=== PATIENT | male | born 1970 | race Caucasian/White ===

== ENCOUNTER 2017-01-27 13:27 | Inpatient (IN) | payer OTHER ==
[2017-01-27 18:26] VITALS: BMI 30.4
--- NOTE | 2017-01-27 20:04 | HP ---
COWS - Scale Resting Pulse: 0= SD 80 or Below Sweatin= Chills/Flushing Restless Observation: 3= Extraneous Movement Pupil Size: 0= Normal to Room Light Bone or Joint Aches: 2= Severe Diffuse Aches Runny Nose/ Eye Tearin= Runny Nose/Eyes GI Upset > 30mins: 1= Stomach Cramp Tremor Observation: 2= Slight Tremor Visible Yawning Observation: 0= None Anxiety or Irritability: 2=Irritable/Anxious Goose Flesh Skin: 0=Smooth Skin COWS Score: 13 Admission ROS S - [facility] Chief Complaint: withdrawal sx Allergies/Adverse Reactions: Allergies Allergy/AdvReac Type Severity Reaction Status Date / Time No Known Allergies Allergy Verified 01/27/17 18:18 History of Present Illness: 46 years old male with long history of heroin nicotine dependence has abscess on right arm and right leg treated at [facility] "stay few hours" discharged with antibiotic, denies mental illness is admitted to detox Exam Limitations: No Limitations - Ebola screening Have you traveled outside of the country in the last 21 days: No Have you had contact with anyone from an Ebola affected area: No Have you been sick,other than usual withdrawal symptoms: No Do you have a fever: No - Review of Systems Constitutional: Changes in sleep, Weight Stable EENT: reports: No Symptoms Reported Respiratory: reports: No Symptoms reported Cardiac: reports: No Symptoms Reported GI: reports: Nausea, Poor Fluid Intake, Abdominal cramping : reports: No Symptoms Reported Musculoskeletal: reports: Back Pain, Joint Pain, Muscle Pain, Neck Pain Integumentary: reports: Change in Color (right arm and right leg abscess treated in er discharged with antibiotic) Neuro: reports: Tremors Endocrine: reports: No Symptoms Reported Hematology: reports: No Symptoms Reported Psychiatric: reports: Judgement Intact, Mood/Affect Appropiate, Orientated x3 Other Systems: Reviewed and Negative Patient History - Patient Medical History Hx Anemia: No Hx Asthma: No Hx Chronic Obstructive Pulmonary Disease (COPD): No Hx Cancer: No Hx Cardiac Disorders: No Hx Congestive Heart Failure: No Hx Hypertension: No Hx Hypercholesterolemia: No Hx Pacemaker: No HX Cerebrovascular Accident: No Hx Seizures: No Hx Dementia: No Hx Diabetes: No Hx Gastrointestinal Disorders: No Hx Liver Disease: No Hx Genitourinary Disorders: No Hx Sexually Transmitted Disorders: No Hx Renal Disease (ESRD): No Hx Thyroid Disease: No Hx Human Immunodeficiency Virus (HIV): No Hx Hepatitis C: Yes Hx Depression: No Hx Suicide Attempt: No Hx Bipolar Disorder: No Hx Schizophrenia: No - Patient Surgical History Past Surgical History: No - PPD History Previous Implant?: Yes Documented Results: Positive w/o proof Implanted On Prior [facility] Admission?: No PPD to be Administered?: No - Smoking Cessation Smoking history: Current every day smoker Have you smoked in the past 12 months: Yes Aproximately how many cigarettes per day: 10 Cigars Per Day: 0 Hx Chewing Tobacco Use: No Initiated information on smoking cessation: Yes 'Breaking Loose' booklet given: 01/27/17 - Substance & Tx. History Hx Alcohol Use: No Hx Substance Use: Yes Substance Use Type: Cocaine, Marijuana, Opiates Hx Substance Use Treatment: Yes (2015 [facility]) - Substances Abused Heroin Route: Injection Frequency: Daily Amount used: 2-3 BUNDLES Age of first use: 27 Date of Last Use: 01/26/17 Admission Physical Exam [facility] - Vital Signs Vital Signs: Vital Signs - 24 hr 01/27/17 16:57 Temperature 35.8 F L Pulse Rate 75 Respiratory 20 Rate Blood Pressure 137/84 - Physical General Appearance: Yes: Appropriately Dressed, Mild Distress, Obese, Tremorous , Irritable, Sweating, Anxious HEENTM: Yes: Hearing grossly Normal, Normal ENT Inspection, Normocephalic, Normal Voice Respiratory: Yes: Chest Non-Tender, Lungs Clear, Normal Breath Sounds, No Respiratory Distress, No Accessory Muscle Use Neck: Yes: Supple, Trachea in good position Breast: Yes: Breasts Symetrical Cardiology: Yes: Regular Rhythm, Regular Rate, S1, S2 Abdominal: Yes: Non Tender, Soft, Increased Bowel Sounds Genitourinary: Yes: Within Normal Limits Back: Yes: Normal Inspection Musculoskeletal: Yes: full range of Motion, Gait Steady, Back pain, Muscle Pain Extremities: Yes: Normal Range of Motion, Non-Tender, Tremors, Erythema (right arm + right leg) Neurological: Yes: Fully Oriented, Alert, Motor Strength 5/5, Normal Mood/Affect , Normal Response Integumentary: Yes: Warm, Erythema (right arm and right leg), Track Franks Lymphatic: Yes: Within Normal Limits - Diagnostic (1) Opioid dependence with withdrawal Current Visit: Yes Status: Acute (2) Positive PPD, treated Current Visit: Yes Status: Resolved (3) Hepatitis C carrier Current Visit: Yes Status: Resolved (4) Nicotine dependence Current Visit: Yes Status: Acute Qualifiers: Nicotine product type: cigarettes Substance use status: in withdrawal Qualified Code(s): F17.213 - Nicotine dependence, cigarettes, with withdrawal; F17.213 - Nicotine dependence, cigarettes, with withdrawal (5) Abscess Current Visit: Yes Status: Resolved Comment: right leg and right arm = treated at [facility] 01/23/17 discharged with doxycycline keflex bactrim Cleared for Admission [facility] - Detox or Rehab [facility] Level of Care: Medically Managed Detox Regimen/Protocol: Methadone [facility] Breath Alcohol Content Breath Alcohol Content: 0 Urine Drug Screen - Results Drug Screen Negative: No Urine Drug Screen Results: THC-Marijuana, BARBARA-Cocaine, OPI-Opiates, MET- Methamphetamine, MTD-Methadone
[2017-01-27] MEDS ORDERED: guaiFENesin/D-METHORPHAN HB 10 ML UNIT-DOSE CUPS PO PRN (20:09)
[2017-01-27] MEDS ORDERED: P-EPHED 60MG/TRIPROLIDI 2.5MG TABLET PO PRN (20:09)
[2017-01-27] MEDS ORDERED: MAG HYDROX/AL HYDROX/SIMETH 30 ML UNIT-DOSE CUP PO PRN (20:09)
[2017-01-27] MEDS ORDERED: MAGNESIUM HYDROX 2400MG/30ML ORAL SUSPENSION 30 ML CUP PO PRN (20:09)
[2017-01-27] MEDS ORDERED: MAGNESIUM CITRATE 300 ML BOTTLE PO PRN (20:09)
[2017-01-27] MEDS ORDERED: ACETAMINOPHEN 325 MG TABLET (FP) PO PRN (20:09)
[2017-01-27] MEDS ORDERED: LOPERAMIDE HCL 2 MG CAPSULE PO PRN (20:09)
[2017-01-27] MEDS ORDERED: MENTHOL/PHENOL 1 EACH UD MM PRN (20:09)
[2017-01-27] MEDS ORDERED: METHADONE HCL 10 MG TABLET (FOR DETOX USE ONLY) PO ONE ×2 (20:09→23:00)
[2017-01-27] MEDS ORDERED: NICOTINE POLACRILEX 2 MG GUM BC PRN (20:09)
[2017-01-27] MEDS: diazePAM 5 MG TABLET PO PRN (21:29)
[2017-01-27] MEDS: THIAMINE HCL 100 MG TABLET (FP) PO SCH (21:30)
[2017-01-27] MEDS: RANITIDINE HCL 150 MG TABLET (FP) PO SCH (21:30)
[2017-01-27] MEDS: LIDOCAINE PATCH REMOVAL MC SCH (21:33)
[2017-01-27] MEDS ORDERED: NEOMYCIN/POLYMYXIN/BACITRACIN (TRIPLE ANTIBIOTIC) 28 GM OINTMENT TP SCH (22:00)
[2017-01-27] MEDS ORDERED: DOXYCYCLINE HYCLATE PO SCH (22:00)
[2017-01-27 22:13] LABS: URINE APPEARANCE SLCLOUDY; URINE BILIRUBIN NEGATIVE (NEGATIVE); URINE BLOOD NEGATIVE (NEGATIVE); URINE COLOR YELLOW; URINE GLUCOSE (UA) NEGATIVE (NEGATIVE); URINE KETONE NEGATIVE (NEGATIVE); URINE NITRITE NEGATIVE (NEGATIVE); URINE PROTEIN NEGATIVE (NEGATIVE); URINE UROBILINOGEN NEGATIVE mg/dL (0.2-1.0)
[2017-01-28] MEDS: diazePAM 5 MG TABLET PO PRN ×4 (05:29→19:14)
[2017-01-28 09:28] LABS: MCH 28.1 pg (25.7-33.7); MCHC 32.1 g/dl (32.0-35.9); MEAN CELL VOLUME 87.6 fl (80-96); MEAN PLT VOLUME 8.6 fl (7.5-11.1); PLATELET COUNT 303 K/MM3 (134-434); RDW 15.5 % (11.9-15.9); WHITE BLOOD COUNT 9.5 K/mm3 (4.0-10.0)
[2017-01-28 09:58] LABS: ALBUMIN 3.1 g/dl (3.4-5.0); ALK PHOS 75 U/L (45-117); ANION GAP 9 (8-16); BILIRUBIN,TOTAL 0.5 mg/dL (0.2-1.0); CALCIUM 8.9 mg/dL (8.5-10.1); CO2 27 mmol/L (21-32); GLUCOSE,RANDOM 90 mg/dL (74-106); SGOT/AST 14 U/L (15-37); SGPT/ALT 18 U/L (12-78); TOT PROT 6.8 g/dl (6.4-8.2)
[2017-01-28] MEDS ORDERED: BACITRACIN 15 GM TUBE TOPICAL OINTMENT TP SCH ×2 (10:00)
[2017-01-28] MEDS ORDERED: METHADONE HCL 10 MG TABLET (FOR DETOX USE ONLY) PO ONE (10:00)
[2017-01-28] MEDS: RANITIDINE HCL 150 MG TABLET (FP) PO SCH ×2 (10:13→22:13)
[2017-01-28] MEDS: PRENATAL VITAMINS W/ FOLIC ACID TABLET (FP) PO SCH (10:13)
--- NOTE | 2017-01-28 10:13 | PN ---
S COWS - Scale Resting Pulse: 1= SC 81-100 Sweatin= Chills/Flushing Restless Observation: 3= Extraneous Movement Pupil Size: 0= Normal to Room Light Bone or Joint Aches: 4=Acute Joint/Muscle Pain Runny Nose/ Eye Tearin= Nasal Congestion GI Upset > 30mins: 0= None Tremor Observation of Outstretched Hands: 1= Tremor [place], Not Seen Yawning Observation: 1= 1-2x During Session Anxiety or Irritability: 2=Irritable/Anxious Goose Flesh Skin: 0=Smooth Skin COWS Score: 14 S Progress Note (SOAP) Subjective: ANXIETY,SWEATS/CHILLS,IRRITABILITY,INTERMITTENT SLEEP. PT HAS ABSCESS/ULCER ON RIGHT ANKLE AND CELLULITIS ON RIGHT FOREARM. HE IS ON ANTIBIOTICS THERAPY. ADDENDUM NOTE: PT STATES HE WENT TO [facility] ER ON 01/18/17 FOR ABSCESS ON RIGHT ANKLE AND WAS GIVEN BACTRIM DS 1 TAB PO BID X 10 DAYS AND KEFLEX 500 MG PO BID X 10 DAYS. ON 01/26/17 WENT BACK TO [facility] FOR ABSCESS ON RIGHT FOREARM AND WAS GIVEN DOXYCYCLINE 100 MG PO BID X 8 DAYS. Objective: 01/28/17 10:13 Vital Signs Temperature 97.9 F 01/28/17 09:37 Pulse Rate 81 01/28/17 09:37 Respiratory Rate 20 01/28/17 09:37 Blood Pressure 138/90 01/28/17 09:37 O2 Sat by Pulse Oximetry (%) Laboratory Last Values WBC 9.5 K/mm3 (4.0-10.0) 01/28/17 07:00 RBC 4.80 M/mm3 (4.00-5.60) 01/28/17 07:00 Hgb 13.5 GM/dL (11.7-16.9) 01/28/17 07:00 Hct 42.1 % (35.4-49) 01/28/17 07:00 MCV 87.6 fl (80-96) 01/28/17 07:00 MCH 28.1 pg (25.7-33.7) 01/28/17 07:00 MCHC 32.1 g/dl (32.0-35.9) 01/28/17 07:00 RDW 15.5 % (11.9-15.9) 01/28/17 07:00 Plt Count 303 K/MM3 (134-434) 01/28/17 07:00 MPV 8.6 fl (7.5-11.1) 01/28/17 07:00 Urine Color Yellow 01/27/17 21:30 Urine Appearance Slcloudy 01/27/17 21:30 Urine pH 5.0 (5.0-8.0) 01/27/17 21:30 Urine Protein Negative (NEGATIVE) 01/27/17 21:30 Urine Glucose (UA) Negative (NEGATIVE) 01/27/17 21:30 Urine Ketones Negative (NEGATIVE) 01/27/17 21:30 Urine Blood Negative (NEGATIVE) 01/27/17 21:30 Urine Nitrite Negative (NEGATIVE) 01/27/17 21:30 Urine Bilirubin Negative (NEGATIVE) 01/27/17 21:30 Urine Urobilinogen Negative mg/dL (0.2-1.0) 01/27/17 21:30 RIGHT FOREARM :SLIGHT REDNESS AND SWELLING, RIGHT ANKLE:SMALL ULCER WOUND WITH SLIGHT PUS-LIKE DRAINAGE. Assessment: 01/28/17 10:17 WITHDRAWAL SX ABSCESS/ULCER RIGHT ANKLE CELLULITIS RIGHT FOREAM Plan: WITHDRAWAL SX
[2017-01-28] MEDS: LIDOCAINE 5% TOPICAL PATCH TP SCH (10:14)
[2017-01-28] MEDS: NICOTINE 14 MG/24 HOURS TOPICAL PATCH TD SCH (10:14)
[2017-01-28] MEDS: PATIENT'S OWN MEDICATION (NON-FORMULARY) (Cephalexin [Keflex] 500 MG) PO SCH ×2 (10:14→22:14)
[2017-01-28 11:20] LABS: URINE LEUK ESTERASE Negative (NEGATIVE)
--- NOTE | 2017-01-28 12:02 | EKG ---
Test Reason : Blood Pressure : / mmHG Vent. Rate : 069 BPM Atrial Rate : 069 BPM P-R Int : 162 ms QRS Dur : 096 ms QT Int : 390 ms P-R-T Axes : 072 002 019 degrees QTc Int : 417 ms NORMAL SINUS RHYTHM NORMAL ECG NO PREVIOUS ECGS AVAILABLE Confirmed by DEJON RACHEL MD ([id number]) on 01/28/2017 12:02:01 PM Referred By: Confirmed By:DEJON RACHEL MD
[2017-01-28] MEDS: THIAMINE HCL 100 MG TABLET (FP) PO SCH (22:13)
[2017-01-28] MEDS: diphenhydrAMINE HCL 50 MG CAPSULE PO PRN (22:15)
[2017-01-29] MEDS: diazePAM 5 MG TABLET PO PRN ×5 (02:05→22:19)
[2017-01-29] MEDS: PATIENT'S OWN MEDICATION (NON-FORMULARY) (Cephalexin [Keflex] 500 MG) PO SCH ×5 (07:15→22:19)
[2017-01-29] MEDS ORDERED: CYCLOBENZAPRINE HCL 10 MG TABLET (FP) PO PRN (09:59)
[2017-01-29] MEDS ORDERED: ONDANSETRON *ODT* 4 MG TABLET SL PRN (10:00)
[2017-01-29] MEDS ORDERED: METHADONE HCL 5 MG TABLET (FOR DETOX USE ONLY) PO ONE (10:00)
[2017-01-29] MEDS: PRENATAL VITAMINS W/ FOLIC ACID TABLET (FP) PO SCH (10:19)
[2017-01-29] MEDS: LIDOCAINE 5% TOPICAL PATCH TP SCH (10:20)
[2017-01-29] MEDS: cloNIDine HCL 0.1 MG TABLET PO PRN ×2 (10:20→22:20)
[2017-01-29] MEDS: RANITIDINE HCL 150 MG TABLET (FP) PO SCH ×2 (10:20→22:19)
[2017-01-29] MEDS: NEOMYCIN/POLYMYXIN/BACITRACIN (TRIPLE ANTIBIOTIC) 28 GM OINTMENT TP SCH ×3 (10:21→22:44)
[2017-01-29] MEDS: NICOTINE 14 MG/24 HOURS TOPICAL PATCH TD SCH (10:22)
[2017-01-29] MEDS: LIDOCAINE PATCH REMOVAL MC SCH ×2 (10:22→22:46)
--- NOTE | 2017-01-29 12:27 | PN ---
S COWS - Scale Resting Pulse: 1= MO 81-100 Sweatin= Chills/Flushing Restless Observation: 1= Difficult to Sit Still Pupil Size: 0= Normal to Room Light Bone or Joint Aches: 2= Severe Diffuse Aches Runny Nose/ Eye Tearin= Nasal Congestion GI Upset > 30mins: 2= Nausea/Diarrhea Tremor Observation of Outstretched Hands: 2= Slight Tremor Visible Yawning Observation: 1= 1-2x During Session Anxiety or Irritability: 2=Irritable/Anxious Goose Flesh Skin: 3=Piloerection COWS Score: 16 S Progress Note (SOAP) Subjective: Nausea, Tremors, Fatigue. Objective: PT. A & O X 2 (DISORIENTED ABOUT DAY / DATE). NO ACUTE DISTRESS. 01/29/17 12:25 Vital Signs Temperature 98 F 01/29/17 06:31 Pulse Rate 83 01/29/17 06:31 Respiratory Rate 18 01/29/17 06:31 Blood Pressure 131/81 01/29/17 06:31 O2 Sat by Pulse Oximetry (%) Laboratory Tests 01/27/17 01/28/17 01/28/17 21:30 07:00 07:00 WBC 9.5 RBC 4.80 Hgb 13.5 Hct 42.1 MCV 87.6 MCH 28.1 MCHC 32.1 RDW 15.5 Plt Count 303 MPV 8.6 Sodium 140 Potassium 4.6 Chloride 104 Carbon Dioxide 27 Anion Gap 9 BUN 17 Creatinine 1.0 Creat Clearance w eGFR > 60 Random Glucose 90 Calcium 8.9 Total Bilirubin 0.5 AST 14 L ALT 18 Alkaline Phosphatase 75 Total Protein 6.8 Albumin 3.1 L Urine Color Yellow Urine Appearance Slcloudy Urine pH 5.0 Ur Specific [place] >= 1.030 H Urine Protein Negative Urine Glucose (UA) Negative Urine Ketones Negative Urine Blood Negative Urine Nitrite Negative Urine Bilirubin Negative Urine Urobilinogen Negative Ur Leukocyte Esterase Negative RPR Titer 01/28/17 07:00 WBC RBC Hgb Hct MCV MCH MCHC RDW Plt Count MPV Sodium Potassium Chloride Carbon Dioxide Anion Gap BUN Creatinine Creat Clearance w eGFR Random Glucose Calcium Total Bilirubin AST ALT Alkaline Phosphatase Total Protein Albumin Urine Color Urine Appearance Urine pH Ur Specific [place] Urine Protein Urine Glucose (UA) Urine Ketones Urine Blood Urine Nitrite Urine Bilirubin Urine Urobilinogen Ur Leukocyte Esterase RPR Titer Nonreactive LABS NOTED. Assessment: 01/29/17 12:26 WITHDRAWAL SYMPTOMS. Plan: CONTINUE DETOX.
[2017-01-29] MEDS: BACLOFEN 10 MG TABLET (FP) PO PRN (15:02)
[2017-01-29] MEDS: THIAMINE HCL 100 MG TABLET (FP) PO SCH (22:19)
[2017-01-30] MEDS: diazePAM 5 MG TABLET PO PRN ×3 (03:35→17:15)
[2017-01-30] MEDS: PATIENT'S OWN MEDICATION (NON-FORMULARY) (Cephalexin [Keflex] 500 MG) PO SCH ×2 (05:20→13:42)
[2017-01-30] MEDS ORDERED: METHADONE HCL 5 MG TABLET (FOR DETOX USE ONLY) PO ONE (10:00)
[2017-01-30] MEDS: RANITIDINE HCL 150 MG TABLET (FP) PO SCH ×2 (10:14→22:10)
[2017-01-30] MEDS: PRENATAL VITAMINS W/ FOLIC ACID TABLET (FP) PO SCH (10:14)
[2017-01-30] MEDS: NEOMYCIN/POLYMYXIN/BACITRACIN (TRIPLE ANTIBIOTIC) 28 GM OINTMENT TP SCH ×2 (10:15→22:09)
[2017-01-30] MEDS: LIDOCAINE 5% TOPICAL PATCH TP SCH (10:15)
[2017-01-30] MEDS: cloNIDine HCL 0.1 MG TABLET PO PRN (10:15)
[2017-01-30] MEDS: NICOTINE 14 MG/24 HOURS TOPICAL PATCH TD SCH (10:15)
--- NOTE | 2017-01-30 15:46 | PN ---
BHS Progress Note (SOAP) Subjective: Diarrhea, Anxious, Body Aces, Interrupted Sleep. Objective: PT. A & O X 3. NO ACUTE DISTRESS. 01/30/17 15:45 Vital Signs Temperature 97.8 F 01/30/17 13:28 Pulse Rate 100 H 01/30/17 13:28 Respiratory Rate 20 01/30/17 13:28 Blood Pressure 103/52 01/30/17 13:28 O2 Sat by Pulse Oximetry (%) Laboratory Tests 01/27/17 01/28/17 01/28/17 21:30 07:00 07:00 WBC 9.5 RBC 4.80 Hgb 13.5 Hct 42.1 MCV 87.6 MCH 28.1 MCHC 32.1 RDW 15.5 Plt Count 303 MPV 8.6 Sodium 140 Potassium 4.6 Chloride 104 Carbon Dioxide 27 Anion Gap 9 BUN 17 Creatinine 1.0 Creat Clearance w eGFR > 60 Random Glucose 90 Calcium 8.9 Total Bilirubin 0.5 AST 14 L ALT 18 Alkaline Phosphatase 75 Total Protein 6.8 Albumin 3.1 L Urine Color Yellow Urine Appearance Slcloudy Urine pH 5.0 Ur Specific [place] >= 1.030 H Urine Protein Negative Urine Glucose (UA) Negative Urine Ketones Negative Urine Blood Negative Urine Nitrite Negative Urine Bilirubin Negative Urine Urobilinogen Negative Ur Leukocyte Esterase Negative RPR Titer 01/28/17 07:00 WBC RBC Hgb Hct MCV MCH MCHC RDW Plt Count MPV Sodium Potassium Chloride Carbon Dioxide Anion Gap BUN Creatinine Creat Clearance w eGFR Random Glucose Calcium Total Bilirubin AST ALT Alkaline Phosphatase Total Protein Albumin Urine Color Urine Appearance Urine pH Ur Specific [place] Urine Protein Urine Glucose (UA) Urine Ketones Urine Blood Urine Nitrite Urine Bilirubin Urine Urobilinogen Ur Leukocyte Esterase RPR Titer Nonreactive LABS NOTED. Assessment: 01/30/17 15:45 WITHDRAWAL SYMPTOMS. Plan: CONTINUE DETOX.
[2017-01-30] MEDS: diphenhydrAMINE HCL 50 MG CAPSULE PO PRN (22:10)
[2017-01-30] MEDS: BACLOFEN 10 MG TABLET (FP) PO PRN (22:10)
[2017-01-30] MEDS: THIAMINE HCL 100 MG TABLET (FP) PO SCH (22:10)
[2017-01-30] MEDS: LIDOCAINE PATCH REMOVAL MC SCH (22:10)
[2017-01-31] MEDS: hydrOXYzine PAMOATE 50 MG CAPSULE (FP) PO PRN ×3 (02:16→22:06)
[2017-01-31] MEDS ORDERED: METHADONE HCL 10 MG TABLET (FOR DETOX USE ONLY) PO ONE (10:00)
[2017-01-31] MEDS: NEOMYCIN/POLYMYXIN/BACITRACIN (TRIPLE ANTIBIOTIC) 28 GM OINTMENT TP SCH ×2 (10:11→22:06)
[2017-01-31] MEDS: PRENATAL VITAMINS W/ FOLIC ACID TABLET (FP) PO SCH (10:11)
[2017-01-31] MEDS: RANITIDINE HCL 150 MG TABLET (FP) PO SCH ×2 (10:11→22:06)
[2017-01-31] MEDS: NICOTINE 14 MG/24 HOURS TOPICAL PATCH TD SCH (10:12)
[2017-01-31] MEDS: cloNIDine HCL 0.1 MG TABLET PO PRN (10:12)
[2017-01-31] MEDS: LIDOCAINE 5% TOPICAL PATCH TP SCH (10:54)
--- NOTE | 2017-01-31 12:12 | PN ---
B[facility] Progress Note (SOAP) Subjective: OOB AMBULATING ON UNIT. STATES FEELING MUCH BETTER TODAY. Objective: 01/31/17 12:11 Vital Signs Temperature 96.3 F L 01/31/17 09:55 Pulse Rate 89 01/31/17 09:55 Respiratory Rate 20 10 09:55 Blood Pressure 123/72 01/31/17 09:55 O2 Sat by Pulse Oximetry (%) Laboratory Last Values WBC 9.5 K/mm3 (4.0-10.0) 01/28/17 07:00 RBC 4.80 M/mm3 (4.00-5.60) 01/28/17 07:00 Hgb 13.5 GM/dL (11.7-16.9) 01/28/17 07:00 Hct 42.1 % (35.4-49) 01/28/17 07:00 MCV 87.6 fl (80-96) 01/28/17 07:00 MCH 28.1 pg (25.7-33.7) 01/28/17 07:00 MCHC 32.1 g/dl (32.0-35.9) 01/28/17 07:00 RDW 15.5 % (11.9-15.9) 01/28/17 07:00 Plt Count 303 K/MM3 (134-434) 01/28/17 07:00 MPV 8.6 fl (7.5-11.1) 01/28/17 07:00 Sodium 140 mmol/L (136-145) 01/28/17 07:00 Potassium 4.6 mmol/L (3.5-5.1) 01/28/17 07:00 Chloride 104 mmol/L (98-107) 01/28/17 07:00 Carbon Dioxide 27 mmol/L (21-32) 01/28/17 07:00 Anion Gap 9 (8-16) 01/28/17 07:00 BUN 17 mg/dL (7-18) 01/28/17 07:00 Creatinine 1.0 mg/dL (0.7-1.3) 01/28/17 07:00 Creat Clearance w eGFR > 60 (>60) 01/28/17 07:00 Random Glucose 90 mg/dL (74-106) 01/28/17 07:00 Calcium 8.9 mg/dL (8.5-10.1) 01/28/17 07:00 Total Bilirubin 0.5 mg/dL (0.2-1.0) 01/28/17 07:00 AST 14 U/L (15-37) L 01/28/17 07:00 ALT 18 U/L (12-78) 01/28/17 07:00 Alkaline Phosphatase 75 U/L (45-117) 01/28/17 07:00 Total Protein 6.8 g/dl (6.4-8.2) 01/28/17 07:00 Albumin 3.1 g/dl (3.4-5.0) L 01/28/17 07:00 Urine Color Yellow 01/27/17 21:30 Urine Appearance Slcloudy 01/27/17 21:30 Urine pH 5.0 (5.0-8.0) 01/27/17 21:30 Ur Specific [place] >= 1.030 (1.005-1.025) H 01/27/17 21:30 Urine Protein Negative (NEGATIVE) 01/27/17 21:30 Urine Glucose (UA) Negative (NEGATIVE) 01/27/17 21:30 Urine Ketones Negative (NEGATIVE) 01/27/17 21:30 Urine Blood Negative (NEGATIVE) 01/27/17 21:30 Urine Nitrite Negative (NEGATIVE) 01/27/17 21:30 Urine Bilirubin Negative (NEGATIVE) 01/27/17 21:30 Urine Urobilinogen Negative mg/dL (0.2-1.0) 01/27/17 21:30 Ur Leukocyte Esterase Negative (NEGATIVE) 01/27/17 21:30 RPR Titer Nonreactive (NONREACTIVE) 01/28/17 07:00 Assessment: 01/31/17 12:11 WITHDRAWAL SX Plan: CONTINUE DETOX
[2017-01-31] MEDS: BACLOFEN 10 MG TABLET (FP) PO PRN (22:06)
[2017-01-31] MEDS: LIDOCAINE PATCH REMOVAL MC SCH (22:06)
[2017-01-31] MEDS: THIAMINE HCL 100 MG TABLET (FP) PO SCH (22:06)
[2017-02-01] MEDS ORDERED: METHADONE HCL 5 MG TABLET (FOR DETOX USE ONLY) PO ONE (06:00)
[2017-02-01] MEDS: NEOMYCIN/POLYMYXIN/BACITRACIN (TRIPLE ANTIBIOTIC) 28 GM OINTMENT TP SCH (09:44)
[2017-02-01] MEDS: RANITIDINE HCL 150 MG TABLET (FP) PO SCH (09:44)
[2017-02-01] MEDS: PRENATAL VITAMINS W/ FOLIC ACID TABLET (FP) PO SCH (09:44)
[2017-02-01] MEDS: NICOTINE 14 MG/24 HOURS TOPICAL PATCH TD SCH (09:44)
[2017-02-01] MEDS: LIDOCAINE 5% TOPICAL PATCH TP SCH (09:44)
[2017-02-01 09:45] VITALS: BP 138/74; PULSE 117; TEMP 97.9
--- NOTE | 2017-02-01 13:29 | DS ---
[facility] Detox Discharge Summary Admission Date: 01/27/17 Discharge Date: 02/01/17 - History Present History: Opioid Dependence Additional Comments: PATIENT GOING TO REFLECTIONS OUTPATIENT DAY PROGRAM AT [facility] ( [facility] FOR AFTERCARE. PRESCRIPTIONS FOR BOTH BACTRIM DS AND KEFLEX SENT TO PATIENT'S PHARMACY AT TIME OF DISCHARGE FOR CONTINUATION OF TREATMENT OF ABSCESS OF BOTH RIGHT FOREARM AND RIGHT ANKLE THAT PATIENT STARTED TAKING PRIOR TO (AND CONTINUED DURING) ADMISSION TO DETOX. SWELLING SUBSIDING AND INITIAL WOUNDS OBSERVED TO BE HEALING AT BOTH AFFECTED SITES. PATIENT ADVISED TO FOLLOW-UP FOR MEDICAL ASSESSMENT AND FOR FOLLOW-UP CARE OF ABSCESSES ON RIGHT ARM AND RIGHT ANKLE WITH RN CARDIOVASCULAR ICU THOMAS SEQUEIRA ([facility]). PATIENT WAS DISCHARGED FROM DETOX UNIT IN STABLE MEDICAL CONDITION. Pertinent Past History: Hep C, Nicotine Dependence, Abscess of Right Arm and Right Leg, History of Positive PPD (Treated). - Physical Exam Results Vital Signs: Vital Signs Temperature 97.9 F 02/01/17 09:45 Pulse Rate 117 H 02/01/17 09:45 Respiratory Rate 18 02/01/17 09:45 Blood Pressure 138/74 02/01/17 09:45 O2 Sat by Pulse Oximetry (%) Pertinent Admission Physical Exam Findings: WITHDRAWAL SYMPTOMS. Laboratory Tests 01/27/17 01/28/17 01/28/17 21:30 07:00 07:00 WBC 9.5 RBC 4.80 Hgb 13.5 Hct 42.1 MCV 87.6 MCH 28.1 MCHC 32.1 RDW 15.5 Plt Count 303 MPV 8.6 Sodium 140 Potassium 4.6 Chloride 104 Carbon Dioxide 27 Anion Gap 9 BUN 17 Creatinine 1.0 Creat Clearance w eGFR > 60 Random Glucose 90 Calcium 8.9 Total Bilirubin 0.5 AST 14 L ALT 18 Alkaline Phosphatase 75 Total Protein 6.8 Albumin 3.1 L Urine Color Yellow Urine Appearance Slcloudy Urine pH 5.0 Ur Specific [place] >= 1.030 H Urine Protein Negative Urine Glucose (UA) Negative Urine Ketones Negative Urine Blood Negative Urine Nitrite Negative Urine Bilirubin Negative Urine Urobilinogen Negative Ur Leukocyte Esterase Negative RPR Titer 01/28/17 07:00 WBC RBC Hgb Hct MCV MCH MCHC RDW Plt Count MPV Sodium Potassium Chloride Carbon Dioxide Anion Gap BUN Creatinine Creat Clearance w eGFR Random Glucose Calcium Total Bilirubin AST ALT Alkaline Phosphatase Total Protein Albumin Urine Color Urine Appearance Urine pH Ur Specific [place] Urine Protein Urine Glucose (UA) Urine Ketones Urine Blood Urine Nitrite Urine Bilirubin Urine Urobilinogen Ur Leukocyte Esterase RPR Titer Nonreactive LABS NOTED. - Treatment Hospital Course: Detox Protocol Followed, Detoxed Safely, Responded well, Discharged Condition Good Patient has Accepted a Rehab Referral to: NO. PT GOING TO REFLECTIONS OUTPATIENT PROGRAM ([facility], [facility] - Medication Discharge Medications: Ambulatory Orders Cephalexin [Keflex] 500 mg PO TID #21 mg 02/01/17 Sulfamethoxazole/Trimethoprim [Bactrim Ds -] 1 tab PO BID #14 mg 02/01/17 - Diagnosis (1) Abscess Status: Acute (2) Nicotine dependence Status: Chronic Qualifiers: Nicotine product type: cigarettes Substance use status: in withdrawal Qualified Code(s): F17.213 - Nicotine dependence, cigarettes, with withdrawal; F17.213 - Nicotine dependence, cigarettes, with withdrawal (3) Opioid dependence with withdrawal Status: Acute (4) Positive PPD, treated Status: Chronic (5) Hepatitis C carrier Status: Chronic - AMA Did Patient Leave Against Medical Advice: No
== END 2017-02-01 09:46 | disposition home or self-care (01) | DRG 773 ==
LOC: YASAS 13:27 → Y3N 19:07
PROVIDERS: ADMIT Internal Medicine; ATTEND Internal Medicine
PROC: HZ2ZZZZ Detoxification Services for Substance Abuse Treatment (ICD-10-PCS; principal; 2017-01-27)
DX: F11.23 Opioid dependence with withdrawal (principal); F17.213 Nicotine dependence, cigarettes, with withdrawal; R76.11 Nonspecific reaction to tuberculin skin test without active tuberculosis; B18.2 Chronic viral hepatitis C; L02.415 Cutaneous abscess of right lower limb; L03.113 Cellulitis of right upper limb; E66.9 Obesity, unspecified; Z68.30 Body mass index [BMI] 30.0-30.9, adult
CPT/HCPCS: 36415; 71020-TC; 80053; 81003; 85027; 86593; 93005; 93010; J0475

== ENCOUNTER 2020-06-08 12:10 | Inpatient (IN) | payer OTHER ==
[2020-06-08 14:34] VITALS: BMI 27.1
[2020-06-08] MEDS ORDERED: MAGNESIUM HYDROX 2400MG/30ML ORAL SUSPENSION 30 ML CUP PO PRN (14:50)
[2020-06-08] MEDS ORDERED: IBUPROFEN 400 MG TABLET (FP) PO PRN (14:50)
[2020-06-08] MEDS ORDERED: chlordiazePOXIDE HCL 25 MG CAPSULE PO PRN (14:50)
[2020-06-08] MEDS ORDERED: ONDANSETRON *ODT* 4 MG TABLET SL PRN (14:50)
[2020-06-08] MEDS ORDERED: NICOTINE POLACRILEX 2 MG GUM BUC PRN (14:50)
[2020-06-08] MEDS ORDERED: ACETAMINOPHEN 325 MG TABLET (FP) PO PRN ×2 (14:50)
[2020-06-08] MEDS ORDERED: MAG HYDROX/AL HYDROX/SIMETH 30 ML UNIT-DOSE CUP PO PRN (14:50)
[2020-06-08] MEDS ORDERED: METHOCARBAMOL 500 MG TABLET PO PRN (14:50)
[2020-06-08] MEDS ORDERED: MENTHOL/PHENOL 1 EACH UD MM PRN (14:50)
[2020-06-08] MEDS ORDERED: MAGNESIUM CITRATE 300 ML BOTTLE PO PRN (14:50)
[2020-06-08] MEDS ORDERED: BISMUTH SUBSALICYLATE 524 MG/30 ML UD PO PRN (14:50)
[2020-06-08] MEDS ORDERED: METHADONE HCL 10 MG TABLET PO ONE (15:00)
[2020-06-08] MEDS: hydrOXYzine PAMOATE 25 MG CAPSULE (FP) PO SCH ×2 (18:24→23:06)
[2020-06-08] MEDS: chlordiazePOXIDE HCL 25 MG CAPSULE PO SCH ×2 (18:25→23:06)
[2020-06-08] MEDS: MELATONIN 5 MG TABLETS PO SCH (23:05)
[2020-06-08] MEDS: THIAMINE HCL 100 MG TABLET (FP) PO SCH (23:06)
[2020-06-08] MEDS: CEPHALEXIN MONOHYDRATE 500 MG CAPSULE (UD) PO SCH (23:06)
[2020-06-09] MEDS: chlordiazePOXIDE HCL 25 MG CAPSULE PO SCH ×4 (05:18→22:46)
[2020-06-09] MEDS: CEPHALEXIN MONOHYDRATE 500 MG CAPSULE (UD) PO SCH ×2 (05:19→14:28)
[2020-06-09] MEDS: hydrOXYzine PAMOATE 25 MG CAPSULE (FP) PO SCH ×5 (07:28→22:45)
[2020-06-09 09:54] LABS: POTASSIUM 4.4 mmol/L (3.5-5.1)
[2020-06-09 10:02] LABS: ALBUMIN 3.3 g/dl (3.4-5.0); CALCIUM 8.7 mg/dL (8.5-10.1)
[2020-06-09 10:04] LABS: HEMATOCRIT 44.4 % (35.4-49); MCH 29.1 pg (25.7-33.7); MCHC 33.8 g/dl (32.0-35.9); MEAN CELL VOLUME 86.2 fl (80-96); MEAN PLT VOLUME 8.6 fl (7.5-11.1); PLATELET COUNT 251 K/MM3 (134-434); RBC 5.15 M/mm3 (4.00-5.60); RDW 16.3 % (11.9-15.9); WHITE BLOOD COUNT 7.9 K/mm3 (4.0-10.0)
[2020-06-09 10:05] LABS: CREATININE 0.9 mg/dL (0.55-1.3)
[2020-06-09 10:06] LABS: BILIRUBIN,TOTAL 0.9 mg/dL (0.2-1)
[2020-06-09] MEDS: NICOTINE 7 MG/24 HOURS TOPICAL PATCH TD SCH (10:29)
[2020-06-09] MEDS: PRENATAL VITAMINS W/ FOLIC ACID TABLET (FP) PO SCH (10:29)
[2020-06-09] MEDS ORDERED: METHADONE HCL 10 MG TABLET PO ONE (14:08)
[2020-06-09] MEDS: THIAMINE HCL 100 MG TABLET (FP) PO SCH (22:45)
[2020-06-09] MEDS: MELATONIN 5 MG TABLETS PO SCH (22:45)
[2020-06-10] MEDS: chlordiazePOXIDE HCL 25 MG CAPSULE PO SCH ×4 (05:54→22:36)
[2020-06-10] MEDS: hydrOXYzine PAMOATE 25 MG CAPSULE (FP) PO SCH ×5 (05:54→22:37)
[2020-06-10] MEDS: NICOTINE 7 MG/24 HOURS TOPICAL PATCH TD SCH (10:44)
[2020-06-10] MEDS: METHADONE HCL 40 MG DISPERSABLE TABLET PO SCH (10:44)
[2020-06-10] MEDS: PRENATAL VITAMINS W/ FOLIC ACID TABLET (FP) PO SCH (10:44)
[2020-06-10] MEDS: THIAMINE HCL 100 MG TABLET (FP) PO SCH (22:36)
[2020-06-10] MEDS: MELATONIN 5 MG TABLETS PO SCH (22:37)
[2020-06-11] MEDS ORDERED: chlordiazePOXIDE HCL 10 MG CAPSULE PO PRN
[2020-06-11] MEDS: chlordiazePOXIDE HCL 10 MG CAPSULE PO SCH ×4 (06:02→22:21)
[2020-06-11] MEDS: hydrOXYzine PAMOATE 25 MG CAPSULE (FP) PO SCH ×5 (06:02→22:20)
[2020-06-11] MEDS: METHADONE HCL 40 MG DISPERSABLE TABLET PO SCH (06:02)
[2020-06-11] MEDS: PRENATAL VITAMINS W/ FOLIC ACID TABLET (FP) PO SCH (10:50)
[2020-06-11] MEDS: NICOTINE 7 MG/24 HOURS TOPICAL PATCH TD SCH (10:51)
[2020-06-11] MEDS: MELATONIN 5 MG TABLETS PO SCH (22:20)
[2020-06-11] MEDS: THIAMINE HCL 100 MG TABLET (FP) PO SCH (22:21)
[2020-06-12] MEDS: METHADONE HCL 40 MG DISPERSABLE TABLET PO SCH (05:34)
[2020-06-12] MEDS: hydrOXYzine PAMOATE 25 MG CAPSULE (FP) PO SCH ×5 (05:34→22:10)
[2020-06-12] MEDS: chlordiazePOXIDE HCL 10 MG CAPSULE PO SCH ×2 (05:34→18:14)
[2020-06-12] MEDS: PRENATAL VITAMINS W/ FOLIC ACID TABLET (FP) PO SCH (10:27)
[2020-06-12] MEDS: NICOTINE 7 MG/24 HOURS TOPICAL PATCH TD SCH (10:28)
[2020-06-12] MEDS: MELATONIN 5 MG TABLETS PO SCH (22:10)
[2020-06-12] MEDS: THIAMINE HCL 100 MG TABLET (FP) PO SCH (22:10)
[2020-06-13] MEDS ORDERED: chlordiazePOXIDE HCL 10 MG CAPSULE PO ONE (05:00)
[2020-06-13] MEDS: METHADONE HCL 40 MG DISPERSABLE TABLET PO SCH (06:12)
[2020-06-13] MEDS: hydrOXYzine PAMOATE 25 MG CAPSULE (FP) PO SCH (06:13)
[2020-06-13 09:44] VITALS: BP 124/63; PULSE 79; TEMP 97.1
== END 2020-06-13 10:53 | disposition other institution (70) | DRG 773 ==
LOC: YASAS 12:10 → Y6N 14:40
PROVIDERS: ADMIT Allergy & Immunology; ATTEND Allergy & Immunology
PROC: HZ2ZZZZ Detoxification Services for Substance Abuse Treatment (ICD-10-PCS; principal; 2020-06-08)
DX: F10.230 Alcohol dependence with withdrawal, uncomplicated (principal); F11.20 Opioid dependence, uncomplicated; F14.20 Cocaine dependence, uncomplicated; F17.210 Nicotine dependence, cigarettes, uncomplicated; F41.9 Anxiety disorder, unspecified; F31.9 Bipolar disorder, unspecified; L03.113 Cellulitis of right upper limb; M54.5 Low back pain; G89.29 Other chronic pain; B18.2 Chronic viral hepatitis C; R76.11 Nonspecific reaction to tuberculin skin test without active tuberculosis; Z90.49 Acquired absence of other specified parts of digestive tract; Z98.890 Other specified postprocedural states
CPT/HCPCS: 36415; 71046-TC-FY; 80053; 85027; 86780; C9803; U0003

== ENCOUNTER 2020-06-13 11:17 | Inpatient (IN) | payer OTHER ==
[2020-06-13] MEDS ORDERED: MAGNESIUM HYDROX 2400MG/30ML ORAL SUSPENSION 30 ML CUP PO PRN (12:21)
[2020-06-13] MEDS ORDERED: LOPERAMIDE HCL 2 MG CAPSULE PO PRN (12:21)
[2020-06-13] MEDS ORDERED: P-EPHED 60MG/TRIPROLIDI 2.5MG TABLET PO PRN (12:21)
[2020-06-13] MEDS ORDERED: MAG HYDROX/AL HYDROX/SIMETH 30 ML UNIT-DOSE CUP PO PRN (12:21)
[2020-06-13] MEDS ORDERED: MENTHOL/PHENOL 1 EACH UD MM PRN (12:21)
[2020-06-13] MEDS ORDERED: NICOTINE POLACRILEX 2 MG GUM BUC PRN (12:21)
[2020-06-13] MEDS ORDERED: ACETAMINOPHEN 325 MG TABLET (FP) PO PRN (12:21)
[2020-06-13] MEDS ORDERED: MAGNESIUM CITRATE 300 ML BOTTLE PO PRN (12:21)
[2020-06-13] MEDS ORDERED: guaiFENesin 200 MG/10 ML 10 ML UNIT-DOSE CUPS PO PRN (12:21)
[2020-06-13] MEDS: MELATONIN 5 MG TABLETS PO SCH (21:08)
[2020-06-13] MEDS: THIAMINE HCL 100 MG TABLET (FP) PO SCH (21:09)
[2020-06-13] MEDS: hydrOXYzine PAMOATE 25 MG CAPSULE (FP) PO PRN (21:09)
[2020-06-14] MEDS: METHADONE HCL 40 MG DISPERSABLE TABLET PO SCH (06:11)
[2020-06-14] MEDS: NICOTINE 7 MG/24 HOURS TOPICAL PATCH TD SCH (09:28)
[2020-06-14] MEDS: BACITRACIN 0.9 GM PACKET TP SCH (09:28)
[2020-06-14] MEDS: hydrOXYzine PAMOATE 25 MG CAPSULE (FP) PO PRN ×2 (09:28→21:55)
[2020-06-14] MEDS: IBUPROFEN 400 MG TABLET (FP) PO PRN (09:28)
[2020-06-14] MEDS: PRENATAL VITAMINS W/ FOLIC ACID TABLET (FP) PO SCH (09:29)
[2020-06-14] MEDS: METHOCARBAMOL 500 MG TABLET PO PRN (10:54)
[2020-06-14] MEDS: THIAMINE HCL 100 MG TABLET (FP) PO SCH (21:55)
[2020-06-14] MEDS: MELATONIN 5 MG TABLETS PO SCH (21:55)
[2020-06-15] MEDS: METHADONE HCL 40 MG DISPERSABLE TABLET PO SCH (06:31)
[2020-06-15] MEDS: PRENATAL VITAMINS W/ FOLIC ACID TABLET (FP) PO SCH (09:53)
[2020-06-15] MEDS: NICOTINE 7 MG/24 HOURS TOPICAL PATCH TD SCH (09:53)
[2020-06-15] MEDS: BACITRACIN 0.9 GM PACKET TP SCH (09:54)
[2020-06-15] MEDS: METHOCARBAMOL 500 MG TABLET PO PRN ×2 (09:55→21:47)
[2020-06-15] MEDS: THIAMINE HCL 100 MG TABLET (FP) PO SCH (21:45)
[2020-06-15] MEDS: MELATONIN 5 MG TABLETS PO SCH (21:46)
[2020-06-16] MEDS: METHADONE HCL 40 MG DISPERSABLE TABLET PO SCH (06:32)
[2020-06-16] MEDS: METHOCARBAMOL 500 MG TABLET PO PRN (06:34)
[2020-06-16] MEDS ORDERED: BACITRACIN 0.9 GM PACKET ONE (08:51)
[2020-06-16] MEDS ORDERED: MASKS NR ONE (08:52)
[2020-06-16] MEDS: BACITRACIN 0.9 GM PACKET TP SCH (11:13)
[2020-06-16] MEDS: PRENATAL VITAMINS W/ FOLIC ACID TABLET (FP) PO SCH (11:13)
[2020-06-16] MEDS: NICOTINE 7 MG/24 HOURS TOPICAL PATCH TD SCH (11:13)
[2020-06-16] MEDS: THIAMINE HCL 100 MG TABLET (FP) PO SCH (21:14)
[2020-06-16] MEDS: MELATONIN 5 MG TABLETS PO SCH (21:14)
[2020-06-17] MEDS: METHADONE HCL 40 MG DISPERSABLE TABLET PO SCH (06:11)
[2020-06-17] MEDS: METHOCARBAMOL 500 MG TABLET PO PRN ×2 (06:13→21:05)
[2020-06-17] MEDS ORDERED: PT OWN MED DRAWER 7, Y5N ONE ×2 (06:32→09:58)
[2020-06-17] MEDS: BACITRACIN 0.9 GM PACKET TP SCH (09:23)
[2020-06-17] MEDS: PRENATAL VITAMINS W/ FOLIC ACID TABLET (FP) PO SCH (09:24)
[2020-06-17] MEDS: NICOTINE 7 MG/24 HOURS TOPICAL PATCH TD SCH (09:24)
[2020-06-17] MEDS: THIAMINE HCL 100 MG TABLET (FP) PO SCH (21:05)
[2020-06-17] MEDS: MELATONIN 5 MG TABLETS PO SCH (21:05)
[2020-06-17] MEDS: hydrOXYzine PAMOATE 25 MG CAPSULE (FP) PO PRN (21:05)
[2020-06-17] MEDS: IBUPROFEN 400 MG TABLET (FP) PO PRN (21:07)
[2020-06-18] MEDS: METHADONE HCL 40 MG DISPERSABLE TABLET PO SCH (06:20)
[2020-06-18] MEDS: METHOCARBAMOL 500 MG TABLET PO PRN ×2 (06:22→21:10)
[2020-06-18] MEDS: PRENATAL VITAMINS W/ FOLIC ACID TABLET (FP) PO SCH (09:35)
[2020-06-18] MEDS: BACITRACIN 0.9 GM PACKET TP SCH (09:35)
[2020-06-18] MEDS: NICOTINE 7 MG/24 HOURS TOPICAL PATCH TD SCH (09:36)
[2020-06-18] MEDS: IBUPROFEN 400 MG TABLET (FP) PO PRN ×2 (09:37→21:11)
[2020-06-18] MEDS ORDERED: PANTOPRAZOLE 40 MG TABLET PO ONE (15:51)
[2020-06-18] MEDS: MELATONIN 5 MG TABLETS PO SCH (21:10)
[2020-06-18] MEDS: hydrOXYzine PAMOATE 25 MG CAPSULE (FP) PO PRN (21:10)
[2020-06-18] MEDS: THIAMINE HCL 100 MG TABLET (FP) PO SCH (21:10)
[2020-06-19] MEDS: METHADONE HCL 40 MG DISPERSABLE TABLET PO SCH (06:23)
[2020-06-19] MEDS: METHOCARBAMOL 500 MG TABLET PO PRN ×2 (06:23→21:09)
[2020-06-19] MEDS: NICOTINE 7 MG/24 HOURS TOPICAL PATCH TD SCH (09:30)
[2020-06-19] MEDS: IBUPROFEN 400 MG TABLET (FP) PO PRN (09:30)
[2020-06-19] MEDS: BACITRACIN 0.9 GM PACKET TP SCH (09:30)
[2020-06-19] MEDS: PRENATAL VITAMINS W/ FOLIC ACID TABLET (FP) PO SCH (09:30)
[2020-06-19] MEDS: PANTOPRAZOLE 40 MG TABLET PO SCH (09:30)
[2020-06-19] MEDS: MELATONIN 5 MG TABLETS PO SCH (21:09)
[2020-06-19] MEDS: THIAMINE HCL 100 MG TABLET (FP) PO SCH (21:09)
[2020-06-19] MEDS: hydrOXYzine PAMOATE 25 MG CAPSULE (FP) PO PRN (21:09)
[2020-06-20] MEDS: METHADONE HCL 40 MG DISPERSABLE TABLET PO SCH (06:33)
[2020-06-20] MEDS: METHOCARBAMOL 500 MG TABLET PO PRN ×3 (06:33→21:15)
[2020-06-20] MEDS ORDERED: MASKS NR ONE (06:35)
[2020-06-20] MEDS: PANTOPRAZOLE 40 MG TABLET PO SCH (09:42)
[2020-06-20] MEDS: BACITRACIN 0.9 GM PACKET TP SCH (09:42)
[2020-06-20] MEDS: NICOTINE 7 MG/24 HOURS TOPICAL PATCH TD SCH (09:42)
[2020-06-20] MEDS: PRENATAL VITAMINS W/ FOLIC ACID TABLET (FP) PO SCH (09:42)
[2020-06-20] MEDS: TETRAHYDROZOLINE HCL EYE DROPS OD PRN (14:13)
[2020-06-20] MEDS: THIAMINE HCL 100 MG TABLET (FP) PO SCH (21:15)
[2020-06-20] MEDS: MELATONIN 5 MG TABLETS PO SCH (21:15)
[2020-06-20] MEDS: hydrOXYzine PAMOATE 25 MG CAPSULE (FP) PO PRN (21:15)
[2020-06-21] MEDS: METHADONE HCL 40 MG DISPERSABLE TABLET PO SCH (06:14)
[2020-06-21] MEDS: METHOCARBAMOL 500 MG TABLET PO PRN ×2 (06:14→21:07)
[2020-06-21] MEDS: TETRAHYDROZOLINE HCL EYE DROPS OD PRN (06:15)
[2020-06-21] MEDS: PRENATAL VITAMINS W/ FOLIC ACID TABLET (FP) PO SCH (09:34)
[2020-06-21] MEDS: BACITRACIN 0.9 GM PACKET TP SCH (09:34)
[2020-06-21] MEDS: NICOTINE 7 MG/24 HOURS TOPICAL PATCH TD SCH (09:34)
[2020-06-21] MEDS: PANTOPRAZOLE 40 MG TABLET PO SCH (09:35)
[2020-06-21] MEDS: IBUPROFEN 400 MG TABLET (FP) PO PRN (09:36)
[2020-06-21] MEDS: MELATONIN 5 MG TABLETS PO SCH (21:06)
[2020-06-21] MEDS: THIAMINE HCL 100 MG TABLET (FP) PO SCH (21:06)
[2020-06-21] MEDS: hydrOXYzine PAMOATE 25 MG CAPSULE (FP) PO PRN (21:07)
[2020-06-22] MEDS: METHADONE HCL 40 MG DISPERSABLE TABLET PO SCH (05:48)
[2020-06-22] MEDS: IBUPROFEN 400 MG TABLET (FP) PO PRN (05:50)
[2020-06-22] MEDS: TETRAHYDROZOLINE HCL EYE DROPS OD PRN (05:50)
[2020-06-22] MEDS: PANTOPRAZOLE 40 MG TABLET PO SCH (09:45)
[2020-06-22] MEDS: BACITRACIN 0.9 GM PACKET TP SCH (09:45)
[2020-06-22] MEDS: PRENATAL VITAMINS W/ FOLIC ACID TABLET (FP) PO SCH (09:45)
[2020-06-22] MEDS: NICOTINE 7 MG/24 HOURS TOPICAL PATCH TD SCH (09:45)
[2020-06-22] MEDS: hydrOXYzine PAMOATE 25 MG CAPSULE (FP) PO PRN (21:12)
[2020-06-22] MEDS: THIAMINE HCL 100 MG TABLET (FP) PO SCH (21:12)
[2020-06-22] MEDS: MELATONIN 5 MG TABLETS PO SCH (21:12)
[2020-06-22] MEDS: METHOCARBAMOL 500 MG TABLET PO PRN (21:12)
[2020-06-23] MEDS: METHADONE HCL 40 MG DISPERSABLE TABLET PO SCH (06:21)
[2020-06-23] MEDS: METHOCARBAMOL 500 MG TABLET PO PRN ×2 (06:24→21:23)
[2020-06-23] MEDS: TETRAHYDROZOLINE HCL EYE DROPS OD PRN (06:24)
[2020-06-23] MEDS: NICOTINE 7 MG/24 HOURS TOPICAL PATCH TD SCH (09:51)
[2020-06-23] MEDS: hydrOXYzine PAMOATE 25 MG CAPSULE (FP) PO PRN ×2 (09:51→21:23)
[2020-06-23] MEDS: BACITRACIN 0.9 GM PACKET TP SCH (09:51)
[2020-06-23] MEDS: PANTOPRAZOLE 40 MG TABLET PO SCH (09:52)
[2020-06-23] MEDS: PRENATAL VITAMINS W/ FOLIC ACID TABLET (FP) PO SCH (09:52)
[2020-06-23] MEDS: IBUPROFEN 400 MG TABLET (FP) PO PRN (09:52)
[2020-06-23] MEDS: THIAMINE HCL 100 MG TABLET (FP) PO SCH (21:23)
[2020-06-23] MEDS: MELATONIN 5 MG TABLETS PO SCH (21:23)
[2020-06-24] MEDS: METHADONE HCL 40 MG DISPERSABLE TABLET PO SCH (06:30)
[2020-06-24] MEDS: METHOCARBAMOL 500 MG TABLET PO PRN (06:32)
[2020-06-24] MEDS: TETRAHYDROZOLINE HCL EYE DROPS OD PRN (06:32)
[2020-06-24] MEDS: NICOTINE 7 MG/24 HOURS TOPICAL PATCH TD SCH (09:22)
[2020-06-24] MEDS: PRENATAL VITAMINS W/ FOLIC ACID TABLET (FP) PO SCH (09:22)
[2020-06-24] MEDS: PANTOPRAZOLE 40 MG TABLET PO SCH (09:23)
[2020-06-24] MEDS: BACITRACIN 0.9 GM PACKET TP SCH (09:23)
[2020-06-24] MEDS: MELATONIN 5 MG TABLETS PO SCH (21:08)
[2020-06-24] MEDS: IBUPROFEN 400 MG TABLET (FP) PO PRN (21:08)
[2020-06-24] MEDS: THIAMINE HCL 100 MG TABLET (FP) PO SCH (21:08)
[2020-06-24] MEDS: hydrOXYzine PAMOATE 25 MG CAPSULE (FP) PO PRN (21:09)
[2020-06-25] MEDS: METHADONE HCL 40 MG DISPERSABLE TABLET PO SCH (06:34)
[2020-06-25] MEDS: METHOCARBAMOL 500 MG TABLET PO PRN (06:34)
[2020-06-25] MEDS: NICOTINE 7 MG/24 HOURS TOPICAL PATCH TD SCH (09:24)
[2020-06-25] MEDS: BACITRACIN 0.9 GM PACKET TP SCH (09:24)
[2020-06-25] MEDS: PRENATAL VITAMINS W/ FOLIC ACID TABLET (FP) PO SCH (09:24)
[2020-06-25] MEDS: PANTOPRAZOLE 40 MG TABLET PO SCH (09:24)
[2020-06-25] MEDS: TETRAHYDROZOLINE HCL EYE DROPS OD PRN (09:25)
[2020-06-25] MEDS: MELATONIN 5 MG TABLETS PO SCH (21:02)
[2020-06-25] MEDS: THIAMINE HCL 100 MG TABLET (FP) PO SCH (21:02)
[2020-06-25] MEDS: hydrOXYzine PAMOATE 25 MG CAPSULE (FP) PO PRN (21:02)
[2020-06-26] MEDS: METHADONE HCL 40 MG DISPERSABLE TABLET PO SCH (06:32)
[2020-06-26] MEDS: TETRAHYDROZOLINE HCL EYE DROPS OD PRN (06:36)
[2020-06-26] MEDS: METHOCARBAMOL 500 MG TABLET PO PRN (06:37)
[2020-06-26] MEDS: NICOTINE 7 MG/24 HOURS TOPICAL PATCH TD SCH (09:38)
[2020-06-26] MEDS: PRENATAL VITAMINS W/ FOLIC ACID TABLET (FP) PO SCH (09:38)
[2020-06-26] MEDS: BACITRACIN 0.9 GM PACKET TP SCH (09:38)
[2020-06-26] MEDS: hydrOXYzine PAMOATE 25 MG CAPSULE (FP) PO PRN (21:46)
[2020-06-26] MEDS: THIAMINE HCL 100 MG TABLET (FP) PO SCH (21:46)
[2020-06-26] MEDS: MELATONIN 5 MG TABLETS PO SCH (21:47)
[2020-06-26] MEDS: IBUPROFEN 400 MG TABLET (FP) PO PRN (21:47)
[2020-06-27] MEDS: METHADONE HCL 40 MG DISPERSABLE TABLET PO SCH (06:20)
[2020-06-27] MEDS: METHOCARBAMOL 500 MG TABLET PO PRN ×2 (06:21→21:06)
[2020-06-27] MEDS: TETRAHYDROZOLINE HCL EYE DROPS OD PRN (06:22)
[2020-06-27] MEDS ORDERED: PT OWN MED DRAWER 7, Y5N ONE ×2 (06:23→14:40)
[2020-06-27] MEDS: PRENATAL VITAMINS W/ FOLIC ACID TABLET (FP) PO SCH (09:38)
[2020-06-27] MEDS: BACITRACIN 0.9 GM PACKET TP SCH (09:39)
[2020-06-27] MEDS: IBUPROFEN 400 MG TABLET (FP) PO PRN (09:39)
[2020-06-27] MEDS: NICOTINE 7 MG/24 HOURS TOPICAL PATCH TD SCH (09:39)
[2020-06-27] MEDS: hydrOXYzine PAMOATE 25 MG CAPSULE (FP) PO PRN (21:05)
[2020-06-27] MEDS: MELATONIN 5 MG TABLETS PO SCH (21:05)
[2020-06-27] MEDS: THIAMINE HCL 100 MG TABLET (FP) PO SCH (21:06)
[2020-06-28] MEDS: TETRAHYDROZOLINE HCL EYE DROPS OD PRN (06:31)
[2020-06-28] MEDS: METHOCARBAMOL 500 MG TABLET PO PRN (06:32)
[2020-06-28] MEDS: METHADONE HCL 40 MG DISPERSABLE TABLET PO SCH (06:33)
[2020-06-28 06:59] VITALS: BP 118/75; PULSE 66; TEMP 97.7
[2020-06-28] MEDS: NICOTINE 7 MG/24 HOURS TOPICAL PATCH TD SCH (09:18)
[2020-06-28] MEDS: IBUPROFEN 400 MG TABLET (FP) PO PRN (09:18)
[2020-06-28] MEDS: PRENATAL VITAMINS W/ FOLIC ACID TABLET (FP) PO SCH (09:18)
[2020-06-28] MEDS: BACITRACIN 0.9 GM PACKET TP SCH (09:18)
== END 2020-06-28 11:10 | disposition home or self-care (01) | DRG 772 ==
LOC: YASAS 11:17 → Y5N 11:18
PROVIDERS: ADMIT Allergy & Immunology; ATTEND Allergy & Immunology
PROC: HZ42ZZZ Group Counseling for Substance Abuse Treatment, Cognitive-Behavioral (ICD-10-PCS; principal; 2020-06-13)
DX: F10.20 Alcohol dependence, uncomplicated (principal); F11.20 Opioid dependence, uncomplicated; F14.20 Cocaine dependence, uncomplicated; F17.210 Nicotine dependence, cigarettes, uncomplicated; F41.8 Other specified anxiety disorders; F32.9 Major depressive disorder, single episode, unspecified; M54.5 Low back pain; G89.29 Other chronic pain; B18.2 Chronic viral hepatitis C; Z90.49 Acquired absence of other specified parts of digestive tract; Z98.890 Other specified postprocedural states
CPT/HCPCS: C9803; U0003

== ENCOUNTER 2021-10-28 20:16 | Inpatient (IN) | payer OTHER ==
[2021-10-28 21:35] VITALS: BMI 28.5
[2021-10-28] MEDS ORDERED: P-EPHED 60MG/TRIPROLIDI 2.5MG TABLET PO PRN (22:28)
[2021-10-28] MEDS ORDERED: BISMUTH SUBSALICYLATE 524 MG/30 ML PO PRN (22:28)
[2021-10-28] MEDS ORDERED: MAG HYDROX/AL HYDROX/SIMETH 30 ML UNIT-DOSE CUP PO PRN (22:28)
[2021-10-28] MEDS ORDERED: ONDANSETRON *ODT* 4 MG TABLET SL PRN (22:28)
[2021-10-28] MEDS ORDERED: LOPERAMIDE HCL 2 MG CAPSULE PO PRN (22:28)
[2021-10-28] MEDS ORDERED: NICOTINE 10 MG CARTRIDGE (INHALER) IH PRN (22:28)
[2021-10-28] MEDS ORDERED: MAGNESIUM CITRATE 300 ML BOTTLE PO PRN (22:28)
[2021-10-28] MEDS ORDERED: ACETAMINOPHEN 325 MG TABLET (FP) PO PRN ×2 (22:28)
[2021-10-28] MEDS ORDERED: DICYCLOMINE HCL 10 MG CAPSULE PO PRN (22:28)
[2021-10-28] MEDS ORDERED: IBUPROFEN 600 MG TABLET (FP) PO PRN (22:28)
[2021-10-28] MEDS ORDERED: BENZOCAINE/MENTHOL (CHLORASEPTIC ) LOZENGE MM PRN (22:28)
[2021-10-28] MEDS ORDERED: MAGNESIUM HYDROX 2400MG/30ML ORAL SUSPENSION 30 ML CUP PO PRN (22:28)
[2021-10-28] MEDS ORDERED: guaiFENesin 200 MG/10 ML 10 ML UNIT-DOSE CUPS PO PRN (22:28)
[2021-10-29] MEDS: LIDOCAINE PATCH REMOVAL MC SCH ×2 (00:52→23:57)
[2021-10-29] MEDS: SULFAMETHOXAZOLE/TRIMETHOPRIM 800MG/160MG D.S. TABLET PO SCH ×3 (00:52→22:22)
[2021-10-29] MEDS: hydrOXYzine PAMOATE 25 MG CAPSULE (FP) PO PRN ×4 (05:43→22:22)
[2021-10-29] MEDS: IBUPROFEN 400 MG TABLET (FP) PO PRN (05:43)
[2021-10-29] MEDS: METHOCARBAMOL 500 MG TABLET PO PRN ×3 (05:44→17:54)
[2021-10-29] MEDS: NICOTINE 14 MG/24 HOURS TOPICAL PATCH TD SCH (10:28)
[2021-10-29] MEDS: LIDOCAINE 5% TOPICAL PATCH TP SCH (10:28)
[2021-10-29] MEDS: PRENATAL VITAMINS W/ FOLIC ACID TABLET (FP) PO SCH (10:28)
[2021-10-29] MEDS ORDERED: methaDONE HCL 10 MG TABLET (FOR DETOX USE ONLY) PO ONE (11:00)
[2021-10-29 11:10] LABS: HEMATOCRIT 42.3 % (35.4-49); HEMOGLOBIN 13.9 GM/dL (11.7-16.9); MCH 28.4 pg (25.7-33.7); MEAN CELL VOLUME 86.2 fl (80-96); MEAN PLT VOLUME 8.6 fl (7.5-11.1); PLATELET COUNT 255 10^3/uL (134-434); RBC 4.91 M/mm3 (4.00-5.60); RDW 16.6 % (11.9-15.9); WHITE BLOOD COUNT 8.4 K/mm3 (4.0-10.0)
[2021-10-29 12:55] LABS: ALBUMIN 3.7 g/dl (3.4-5.0); BLOOD UREA NITROGEN 23.1 mg/dL (7-18); CALCIUM 8.6 mg/dL (8.5-10.1)
[2021-10-29 12:58] LABS: CREATININE 1.2 mg/dL (0.55-1.3)
[2021-10-29 13:01] LABS: BILIRUBIN,TOTAL 0.8 mg/dL (0.2-1); TOT PROT 7.6 g/dl (6.4-8.2)
[2021-10-29] MEDS: MELATONIN 5 MG TABLETS PO SCH (22:22)
[2021-10-29] MEDS: THIAMINE HCL 100 MG TABLET (FP) PO SCH (22:22)
[2021-10-30] MEDS: METHOCARBAMOL 500 MG TABLET PO PRN ×2 (02:14→22:53)
[2021-10-30] MEDS ORDERED: cloNIDine HCL 0.1 MG TABLET PO ONE (02:35)
[2021-10-30] MEDS ORDERED: methaDONE HCL 10 MG TABLET (FOR DETOX USE ONLY) ONE (08:55)
[2021-10-30] MEDS: NICOTINE 14 MG/24 HOURS TOPICAL PATCH TD SCH (10:16)
[2021-10-30] MEDS: LIDOCAINE 5% TOPICAL PATCH TP SCH (10:16)
[2021-10-30] MEDS: SULFAMETHOXAZOLE/TRIMETHOPRIM 800MG/160MG D.S. TABLET PO SCH ×2 (10:17→22:53)
[2021-10-30] MEDS: PRENATAL VITAMINS W/ FOLIC ACID TABLET (FP) PO SCH (10:17)
[2021-10-30] MEDS: THIAMINE HCL 100 MG TABLET (FP) PO SCH (22:53)
[2021-10-30] MEDS: hydrOXYzine PAMOATE 25 MG CAPSULE (FP) PO PRN (22:53)
[2021-10-30] MEDS: MELATONIN 5 MG TABLETS PO SCH (22:53)
[2021-10-30] MEDS: LIDOCAINE PATCH REMOVAL MC SCH (23:06)
[2021-10-31] MEDS: IBUPROFEN 400 MG TABLET (FP) PO PRN (02:00)
[2021-10-31] MEDS: hydrOXYzine PAMOATE 25 MG CAPSULE (FP) PO PRN ×2 (02:00→10:10)
[2021-10-31] MEDS ORDERED: methaDONE HCL 10 MG TABLET (FOR DETOX USE ONLY) PO ONE (10:00)
[2021-10-31] MEDS: LIDOCAINE 5% TOPICAL PATCH TP SCH (10:10)
[2021-10-31] MEDS: PRENATAL VITAMINS W/ FOLIC ACID TABLET (FP) PO SCH (10:10)
[2021-10-31] MEDS: METHOCARBAMOL 500 MG TABLET PO PRN (10:10)
[2021-10-31] MEDS: SULFAMETHOXAZOLE/TRIMETHOPRIM 800MG/160MG D.S. TABLET PO SCH (10:10)
[2021-10-31] MEDS: NICOTINE 14 MG/24 HOURS TOPICAL PATCH TD SCH (10:11)
[2021-10-31 19:05] VITALS: BP 119/79; PULSE 85; TEMP 98.2
[2021-11-02] MEDS ORDERED: methaDONE HCL 10 MG TABLET (FOR DETOX USE ONLY) PO ONE (10:00)
== END 2021-10-31 17:10 | disposition left against medical advice (07) | DRG 770 ==
LOC: YASAS 20:16 → Y6N 23:06
PROVIDERS: ADMIT Allergy & Immunology; ATTEND Surgery
PROC: HZ2ZZZZ Detoxification Services for Substance Abuse Treatment (ICD-10-PCS; principal; 2021-10-28)
DX: F11.23 Opioid dependence with withdrawal (principal); F14.20 Cocaine dependence, uncomplicated; F10.10 Alcohol abuse, uncomplicated; F17.213 Nicotine dependence, cigarettes, with withdrawal; F41.9 Anxiety disorder, unspecified; F32.A Depression, unspecified; B18.2 Chronic viral hepatitis C
CPT/HCPCS: 36415; 80053; 85027; 86780; C9803-CS; J0735; U0003; U0005

== ENCOUNTER 2023-09-30 13:22 | Inpatient (IN) | payer OTHER ==
[2023-09-30 14:15] VITALS: BMI 28.5
[2023-09-30] MEDS ORDERED: NICOTINE POLACRILEX 2 MG GUM BUC PRN (16:08)
[2023-09-30] MEDS ORDERED: NICOTINE POLACRILEX 2 MG LOZENGE BC PRN (16:08)
[2023-09-30] MEDS ORDERED: DICYCLOMINE HCL 10 MG CAPSULE PO PRN (16:08)
[2023-09-30] MEDS ORDERED: POLYETHYLENE GLYCOL (HEALTHYLAX) 3350 17 GM PACKET PO PRN (16:08)
[2023-09-30] MEDS ORDERED: LOPERAMIDE HCL 2 MG CAPSULE PO PRN (16:08)
[2023-09-30] MEDS ORDERED: BISMUTH SUBSALICYLATE 524 MG/30 ML PO PRN (16:08)
[2023-09-30] MEDS ORDERED: NALOXONE HCL 0.4 MG/ML VIAL IM PRN (16:08)
[2023-09-30] MEDS ORDERED: NALOXONE (NARCAN) HCL 4 MG/0.1 ML SPRAY NS PRN (16:08)
[2023-09-30] MEDS ORDERED: hydrOXYzine PAMOATE 25 MG CAPSULE (FP) PO PRN (16:08)
[2023-09-30] MEDS ORDERED: ONDANSETRON *ODT* 4 MG TABLET SL PRN (16:08)
[2023-09-30] MEDS ORDERED: MAGNESIUM HYDROX 2400MG/30ML ORAL SUSPENSION 30 ML CUP PO PRN (16:08)
[2023-09-30] MEDS ORDERED: BENZONATATE 200 MG CAPSULE PO PRN (16:08)
[2023-09-30] MEDS ORDERED: MAG HYDROX/AL HYDROX/SIMETH 30 ML UNIT-DOSE CUP PO PRN (16:08)
[2023-09-30] MEDS: MELATONIN 5 MG TABLETS PO SCH (22:56)
[2023-09-30] MEDS: CEPHALEXIN MONOHYDRATE 500 MG CAPSULE (UD) PO SCH (22:56)
[2023-09-30] MEDS: THIAMINE 100 MG TABLET PO SCH (22:56)
[2023-10-01] MEDS: guaiFENesin 600 MG TABLET.ER (FP) PO PRN (03:13)
[2023-10-01] MEDS: BENZOCAINE/MENTHOL (CHLORASEPTIC ) LOZENGE MM PRN (03:13)
[2023-10-01] MEDS: PRENATAL VITAMINS W/ FOLIC ACID TABLET (FP) PO SCH (10:00)
[2023-10-01] MEDS: methaDONE HCL 10 MG TABLET (FOR DETOX USE ONLY) PO ONE (10:01)
[2023-10-01] MEDS: P-EPHED 60MG/TRIPROLIDI 2.5MG TABLET PO PRN (10:02)
[2023-10-01 11:50] LABS: POTASSIUM 3.9 mmol/L (3.5-5.1)
[2023-10-01 11:51] LABS: HEMATOCRIT 34.9 % (35.4-49); HEMOGLOBIN 11.6 GM/dL (11.7-16.9); MCH 30.3 pg (25.7-33.7); MCHC 33.1 g/dl (32.0-35.9); MEAN CELL VOLUME 91.6 fl (80-96); MEAN PLT VOLUME 8.4 fl (7.5-11.1); PLATELET COUNT 291 10^3/uL (134-434); RBC 3.81 M/mm3 (4.00-5.60); RDW 17.4 % (11.9-15.9)
[2023-10-01 11:53] LABS: CALCIUM 8.8 mg/dL (8.5-10.1)
[2023-10-01 11:54] LABS: ALBUMIN 3.5 g/dl (3.4-5.0); BLOOD UREA NITROGEN 21.8 mg/dL (7-18)
[2023-10-01 11:57] LABS: CREATININE 1.1 mg/dL (0.55-1.3)
[2023-10-01 11:58] LABS: BILIRUBIN,TOTAL 1.1 mg/dL (0.2-1); TOT PROT 7.3 g/dl (6.4-8.2)
[2023-10-02] MEDS ORDERED: methaDONE HCL 10 MG TABLET (FOR DETOX USE ONLY) PO ONE ×2 (06:00→10:00)
[2023-10-02] MEDS: IBUPROFEN 600 MG TABLET (FP) PO PRN (10:11)
[2023-10-02] MEDS: methaDONE HCL 10 MG TABLET PO ONE (10:12)
[2023-10-02] MEDS: METHOCARBAMOL 500 MG TABLET PO PRN (17:44)
[2023-10-02] MEDS: FERROUS SO4 325 MG TABLET (FP) PO SCH (17:44)
[2023-10-02] MEDS: IBUPROFEN 400 MG TABLET (FP) PO PRN (17:44)
[2023-10-02] MEDS: ACETAMINOPHEN 325 MG TABLET (FP) PO PRN (22:10)
[2023-10-03] MEDS: cloNIDine HCL 0.1 MG TABLET PO PRN (05:38)
[2023-10-03] MEDS ORDERED: methaDONE HCL 40 MG DISPERSABLE TABLET PO ONE (10:00)
[2023-10-03] MEDS ORDERED: methaDONE HCL 10 MG TABLET (FOR DETOX USE ONLY) PO ONE (10:00)
[2023-10-04] MEDS ORDERED: methaDONE HCL 10 MG TABLET (FOR DETOX USE ONLY) PO ONE (06:00)
[2023-10-04] MEDS: methaDONE HCL 40 MG DISPERSABLE TABLET PO ONE (09:24)
[2023-10-05] MEDS ORDERED: methaDONE HCL 40 MG DISPERSABLE TABLET PO ONE (10:00)
[2023-10-06] MEDS: methaDONE 40 MG, methaDONE 10 MG PO ONE (09:06)
[2023-10-06 09:15] VITALS: BP 109/67; PULSE 72; RESP 18; TEMP 98.7
[2023-10-06] MEDS ORDERED: methaDONE HCL 40 MG DISPERSABLE TABLET PO ONE (10:00)
== END 2023-10-06 11:05 | disposition home or self-care (01) | DRG 773 ==
LOC: YASAS 13:22 → UNDOADMIN 16:57 → Y6N 16:57
PROVIDERS: ADMIT Allergy & Immunology; ATTEND Surgery
PROC: HZ2ZZZZ Detoxification Services for Substance Abuse Treatment (ICD-10-PCS; principal; 2023-10-01)
DX: F11.23 Opioid dependence with withdrawal (principal); F14.20 Cocaine dependence, uncomplicated; F17.213 Nicotine dependence, cigarettes, with withdrawal; D50.9 Iron deficiency anemia, unspecified; F41.9 Anxiety disorder, unspecified; B18.2 Chronic viral hepatitis C; L98.8 Other specified disorders of the skin and subcutaneous tissue; R60.0 Localized edema; Z91.81 History of falling
CPT/HCPCS: 36415; 71046-TC-FY; 73590-TC-RT-FY; 80053; 80305; 85027; 86780; 93005; 93010